=== PATIENT | female | born 1955 | race Caucasian/White ===

== ENCOUNTER 2017-06-15 17:01 | Emergency (ER) | payer OTHER ==
[~2017-06-15] VITALS: Ht 167.6 cm; Wt 85.9 kg
[2017-06-15] MEDS ORDERED: ONDANSETRON ODT 4 MG PO ONE ×2 (17:30)
[2017-06-15] MEDS ORDERED: ONDANSETRON ODT 8 MG ONE (17:33)
[2017-06-15 20:04] VITALS: BP 119/68
== END 2017-06-15 20:16 | disposition home or self-care (01) ==
LOC: ED 20:00
DX: S06.0X0A Concussion without loss of consciousness, initial encounter (principal); S16.1XXA Strain of muscle, fascia and tendon at neck level, initial encounter; S50.02XA Contusion of left elbow, initial encounter; M54.5 Low back pain; W01.0XXA Fall on same level from slipping, tripping and stumbling without subsequent striking against object, initial encounter; Y93.89 Activity, other specified; Y92.512 Supermarket, store or market as the place of occurrence of the external cause; Y99.8 Other external cause status
CPT/HCPCS: 70450; 72110; 72125; 99284; Q0162

== ENCOUNTER 2018-11-15 14:53 | Emergency (ER) | payer OTHER, MEDICARE ==
[~2018-11-15] VITALS: Ht 162.6 cm; Wt 91.0 kg
--- NOTE | 2018-11-15 15:05 | NUR ---
rocío. report received from [facility]. pt c/o all quadrants abd pain with d since last night. seen at urgent care today and transffered from urgent care. pt's aox4. resps even and unlabored. bp/spo2 monitors in place. call light within reach.
[2018-11-15] MEDS ORDERED: NAPR220C2 PO (15:22)
[2018-11-15] MEDS ORDERED: MIRT-34 PO (15:23)
[2018-11-15] MEDS ORDERED: LISI1TAB20 PO (15:24)
[2018-11-15] MEDS ORDERED: TRIA5PAS10 EXT (15:24)
[2018-11-15] MEDS ORDERED: ESOM40CA PO (15:25)
[2018-11-15] MEDS ORDERED: TRAZ-137 PO (15:25)
[2018-11-15] MEDS ORDERED: OXYB5TAB2 PO (15:25)
[2018-11-15] MEDS ORDERED: DULO60CA7 PO (15:26)
[2018-11-15] MEDS ORDERED: FLUT1DIS IH (15:27)
[2018-11-15] MEDS ORDERED: CETI10CA PO (15:27)
[2018-11-15] MEDS ORDERED: CYAN1TAB29 PO (15:27)
[2018-11-15] MEDS ORDERED: SODIUM CHLORIDE FLUSH 10ML SYR IVF ONE (15:30)
[2018-11-15] MEDS ORDERED: MORPHINE SULFATE 4 MG/ML, 1ML IVPush PRN (15:30)
[2018-11-15] MEDS ORDERED: ONDANSETRON 2MG/ML, 2ML IVPush ONE (15:30)
[2018-11-15] MEDS ORDERED: ONDANSETRON 2MG/ML, 2ML ONE (15:51)
[2018-11-15] MEDS ORDERED: MORPHINE SULFATE 4 MG/ML, 1ML ONE (15:52)
--- NOTE | 2018-11-15 15:56 | NUR ---
REPORT FROM VAMSI VALLADARES RN. PATIENT AMB WITH STEADY GAIT TO BATHROOM, UA COLLECTED AND GIVEN TO TRANSPORT MEDIC, IV ESTABLISHED, LABS DRAWN AND GIVEN TO TRANSPORT [facility]IC. MEDICATIONS ADMINISTERED. PATIENT 87% RA, 2L SUPPLEMENTAL O2 APPLIED, NOW 93% 2L NC. NADN. AWAITING CT AND LAB/UA RESULTS. NO ADDITIONAL NEEDS AT THIS TIME. VS UPDATED IN CHART.
[2018-11-15 16:02] LABS: BASOPHILS # (AUTO) 0.04 x10^3/uL (0-0.1); BASOPHILS % (AUTO) 1 % (0-1); EOSINOPHILS % (AUTO) 1 % (1-7); LYMPHOCYTES # (AUTO) 1.59 x10^3/uL (1-3.4); LYMPHOCYTES % (AUTO) 19 % (22-44); MD NO; MEAN CORPUSCULAR HEMOGLOBIN 30.8 pg (27.0-34.8); MEAN CORPUSCULAR HGB CONC 33.3 g/dL (32.4-35.8); MEAN CORPUSCULAR VOLUME 92.5 fL (80-100); MEAN PLATELET VOLUME 7.6 fL (7.4-10.4); MONOCYTES # (AUTO) 0.52 x10^3/uL (0.2-0.8); MONOCYTES % (AUTO) 6 % (2-9); NEUTROPHILS # (AUTO) 6.19 x10^3/uL (1.8-6.8); NEUTROPHILS % (AUTO) 73 % (42-75); PLATELET COUNT 351 x10^3/uL (130-400); RED BLOOD COUNT 4.78 x10^6/uL (3.82-5.3); RED CELL DISTRIBUTION WIDTH 15.4 % (9.6-15.2)
[2018-11-15 16:10] LABS: MICROSCOPIC AUTO
[2018-11-15 16:12] LABS: ALBUMIN 3.6 g/dL (3.4-5.0); ANION GAP 10 mmol/L (5-15); CALCIUM 9.3 mg/dL (8.5-10.1); CHLORIDE 104 mmol/L (98-107)
[2018-11-15 16:12] LABS: CULTURE INDICATED? YES
[2018-11-15 16:15] LABS: ALANINE AMINOTRANSFERASE 35 U/L (12-78); ALKALINE PHOSPHATASE 80 U/L (45-117); BILIRUBIN,TOTAL 0.4 mg/dL (0.2-1.0); TOTAL PROTEIN 7.5 g/dL (6.4-8.2)
[2018-11-15] MEDS ORDERED: OMNIPAQUE 350 MG/ML, 100ML BOTTLE ONE (16:56)
--- NOTE | 2018-11-15 17:04 | NUR ---
VS UPDATED IN CHART, PATIENT REPORTS PAIN MEDICATIONS HELPED, PATIENT LAYING IN [place] B[place]OP. RESP EVEN/UNLABORED. AWAITING CT RESULTS.
--- NOTE | 2018-11-15 17:16 | NUR ---
RESULTS BACK, CHART UP FOR RECHECK.
[2018-11-15 19:30] VITALS: BP 114/68
--- NOTE | 2018-11-15 19:39 | NUR ---
THE PT WAS AMBULATED. SPO2 87 % ON R/A. 96 % ON R/A AT REST W/ DEEP BREATHS. ERP UPDATED. PT D/C'D TO HOME. PT DOES USE A CPAP. PT D/C'D W/ IS W/ INST. TO THE CARE OF FAMILY.
[2018-12-09] MEDS ORDERED: OXYC-302 PO (15:13)
[2018-12-09] MEDS ORDERED: POLY17PO5 PO (15:21)
== END 2018-11-15 19:43 | disposition home or self-care (01) ==
LOC: ED 18:16
DX: K80.20 Calculus of gallbladder without cholecystitis without obstruction (principal)
CPT/HCPCS: 36415; 74177; 80053; 81001; 83690; 85025; 87086; 96374; 96375; 99284; J2270; J2405; Q9967

== ENCOUNTER 2019-02-09 14:06 | Outpatient (CLI) | payer MEDICARE, OTHER ==
[~2019-02-09 14:06] MED LIST: CETI10CA PO; CYAN1TAB29 PO; DULO60CA7 PO; ESOM40CA PO; FLUT1DIS IH; LISI1TAB20 PO; MIRT-34 PO; NAPR220C2 PO; OXYB5TAB2 PO; OXYC-302 PO; POLY17PO5 PO; TRAZ-137 PO; TRIA5PAS10 EXT
[2019-02-09] MEDS ORDERED: OMNIPAQUE 350 MG/ML, 100ML BOTTLE ONE (15:12)
== END 2019-02-09 23:59 | disposition home or self-care (01) ==
LOC: CFH 14:06
PROVIDERS: ATTEND Internal Medicine
DX: J84.9 Interstitial pulmonary disease, unspecified (principal); R91.1 Solitary pulmonary nodule; J96.11 Chronic respiratory failure with hypoxia; I25.10 Atherosclerotic heart disease of native coronary artery without angina pectoris; Z87.891 Personal history of nicotine dependence
CPT/HCPCS: 71275; 82565; Q9967

== ENCOUNTER → 2019-04-06 | Outpatient (CLI) | payer MEDICARE, OTHER | END | disposition home or self-care (01) | LOC: LAB 11:26 | PROVIDERS: ATTEND Internal Medicine | DX: J84.9 Interstitial pulmonary disease, unspecified (principal) | CPT/HCPCS: 36600; 82803; 86200; 86225; 86235; 86331; 86431; 86602; 86606; 86609; 86671 ==

== ENCOUNTER → 2019-09-19 | Outpatient (CLI) | payer MEDICARE, OTHER ==
[~2019-09-19] MED LIST changes: +OXYB-39 PO; -OXYB5TAB2 PO; -TRAZ-137 PO; +TRAZ-175 PO
== END | disposition home or self-care (01) ==
LOC: CFH 09:28
PROVIDERS: ATTEND Internal Medicine
DX: R91.1 Solitary pulmonary nodule (principal); J98.4 Other disorders of lung; J84.9 Interstitial pulmonary disease, unspecified
CPT/HCPCS: 71250